=== PATIENT | male | born 1965 | race Hispanic/Latino ===

== ENCOUNTER 2017-07-05 21:33 | Inpatient (IN) | payer MEDICAID, OTHER ==
[~2017-07-05] VITALS: Ht 167.6 cm; Wt 101.6 kg
[2017-07-05 21:53] LABS: BASOPHILS % (AUTO) 0.5 % (0.0-5.0); EOSINOPHILS % (AUTO) 2.2 % (0.0-8.0); HEMATOCRIT 40.3 % (42-54); LYMPHOCYTES % (AUTO) 28.5 % (21.0-51.0); MEAN CORPUSCULAR HEMOGLOBIN 32.1 pg (27.0-33.0); MEAN CORPUSCULAR HGB CONC 34.4 g/dL (32.0-36.0); MEAN CORPUSCULAR VOLUME 93.3 fL (79-99); MONOCYTES % (AUTO) 6.5 % (3.0-13.0); NEUTROPHILS % (AUTO) 62.3 % (40.0-77.0); NUCLEATED RED BLOOD CELLS 0.1 % (0.0-0.19); PLATELET COUNT (AUTO) 236 K/uL (130-400); RED BLOOD CELL COUNT(AUTO) 4.32 MIL/uL (4.50-6.20); RED CELL DISTRIBUTION WIDTH 13.9 % (11.0-15.5); WHITE BLOOD COUNT (AUTO) 12.8 K/uL (4.8-10.8)
[2017-07-05 22:03] LABS: CARBON DIOXIDE 26 mmol/L (21-32); CHLORIDE 104 mmol/L (101-111); CREATININE 0.8 mg/dL (0.5-1.5); GLOMERULAR FILTR. RATE CALC 108 mL/min (>60); GLUCOSE,RANDOM 144 mg/dL (70-105); POTASSIUM 3.5 mmol/L (3.5-5.1); SODIUM SERUM 140 mmol/L (136-145); UREA NITROGEN, BLOOD 9 mg/dL (7-18)
[2017-07-05 22:04] LABS: INR 0.93 (0.85-1.15); PARTIAL THROMBOPLASTIN TIME 26.5 SEC (26.3-35.5); PROTHROMBIN TIME 9.8 SEC (9.6-11.6)
[2017-07-05] MEDS ORDERED: ONDANSETRON HCL 4 MG/2 ML VIAL ONE (22:06)
[2017-07-05] MEDS ORDERED: NITROGLYCERIN 50 MG/D5% WATER 1 BOT ONE (22:06)
[2017-07-05] MEDS ORDERED: MORPHINE SULFATE 2 MG/ML 1ML SYG ONE (22:07)
[2017-07-05 22:18] LABS: ALANINE AMINOTRANSFERASE 45 U/L (12-78); ALBUMIN 3.4 g/dL (3.5-5.0); ASPARTATE AMINOTRANSFERASE 22 U/L (10-37); BILIRUBIN,TOTAL 0.2 mg/dL (0.2-1.0); CREATINE KINASE MB < 0.5 ng/mL (0.5-3.6); CREATINE KINASE, TOTAL 82 U/L (21-232); MYOGLOBIN 20 ng/mL (10-92); TOTAL PROTEIN, SERUM 6.8 g/dL (6.0-8.3)
[2017-07-05] MEDS ORDERED: ACETAMINOPHEN EXTRA STRENGTH 500 MG TABLET ONE (22:49)
[2017-07-05] MEDS ORDERED: METOPROLOL TARTRATE 1 MG/ML 5ML VIAL IV ONE (23:27)
[2017-07-06] VITALS (27 sets, daily range): BP systolic 73–127; BP diastolic 27–80
[2017-07-06] MEDS ORDERED: METOPROLOL TARTRATE 1 MG/ML 5ML VIAL IV ONE (00:33)
[2017-07-06] MEDS ORDERED: NITROGLYCERIN 50 MG/D5% WATER 250 BOT IV PRN (01:15)
[2017-07-06 01:50] LABS: CREATINE KINASE MB < 0.5 ng/mL (0.5-3.6); CREATINE KINASE, TOTAL 79 U/L (21-232); MYOGLOBIN 22 ng/mL (10-92)
[2017-07-06 06:41] LABS: INR 0.96 (0.85-1.15); PARTIAL THROMBOPLASTIN TIME 26.4 SEC (26.3-35.5); PROTHROMBIN TIME 10.1 SEC (9.6-11.6)
[2017-07-06 07:02] LABS: CHOLESTEROL 107 mg/dL (<200); CREATINE KINASE MB < 0.5 ng/mL (0.5-3.6); CREATINE KINASE, TOTAL 65 U/L (21-232); HDL CHOLESTEROL 36 mg/dL (29-71); LDL DIRECT 68 mg/dL (0-99); TRIGLYCERIDES 102 mg/dL (30-200)
[2017-07-06 07:54] LABS: CREATININE 0.8 mg/dL (0.5-1.5); POTASSIUM 3.8 mmol/L (3.5-5.1)
[2017-07-06 07:57] LABS: BASOPHILS % (AUTO) 0.9 % (0.0-5.0); EOSINOPHILS % (AUTO) 2.1 % (0.0-8.0); HEMATOCRIT 37.9 % (42-54); LYMPHOCYTES % (AUTO) 32.9 % (21.0-51.0); MEAN CORPUSCULAR HEMOGLOBIN 31.7 pg (27.0-33.0); MEAN CORPUSCULAR HGB CONC 33.7 g/dL (32.0-36.0); MEAN CORPUSCULAR VOLUME 94.3 fL (79-99); MONOCYTES % (AUTO) 6.5 % (3.0-13.0); NEUTROPHILS % (AUTO) 57.6 % (40.0-77.0); PLATELET COUNT (AUTO) 213 K/uL (130-400); RED BLOOD CELL COUNT(AUTO) 4.02 MIL/uL (4.50-6.20); RED CELL DISTRIBUTION WIDTH 14.4 % (11.0-15.5); WHITE BLOOD COUNT (AUTO) 10.7 K/uL (4.8-10.8)
[2017-07-06 08:00] LABS: BILIRUBIN,TOTAL 0.4 mg/dL (0.2-1.0); TOTAL PROTEIN, SERUM 6.4 g/dL (6.0-8.3)
[2017-07-06] MEDS ORDERED: ENOXAPARIN SODIUM 100 MG/1 ML SQ ONE (08:48)
[2017-07-06] MEDS ORDERED: FUROSEMIDE 40 MG TABLET ONE (08:49)
[2017-07-06] MEDS ORDERED: LOSARTAN 50 MG TABLET ONE (08:49)
[2017-07-06] MEDS ORDERED: ASPIRIN 81MG TAB.CHEW ONE (08:49)
[2017-07-06] MEDS ORDERED: METOPROLOL TARTRATE 25 MG TAB ONE (08:49)
[2017-07-06] MEDS: ISOSORBIDE MONO 30MG TAB SR PO SCH (09:00)
[2017-07-06] MEDS ORDERED: ENOXAPARIN SODIUM 1 MG/KG SQ SCH (09:00)
[2017-07-06] MEDS: ATORVASTATIN CALCIUM 10 MG TABLET PO SCH (09:00)
[2017-07-06] MEDS: METOPROLOL TARTRATE 25 MG TAB PO SCH ×2 (09:00→20:26)
[2017-07-06] MEDS: LOSARTAN 50 MG TABLET PO SCH (09:00)
[2017-07-06] MEDS: ASPIRIN 81MG TAB.CHEW PO SCH (09:00)
[2017-07-06] MEDS: FUROSEMIDE 40 MG TABLET PO SCH (09:00)
[2017-07-06] MEDS ORDERED: ATORVASTATIN CALCIUM 40 MG TABLET PO SCH (09:15)
[2017-07-06] MEDS ORDERED: METO-409 PO (11:57)
[2017-07-06] MEDS ORDERED: SITA50TA PO (11:57)
[2017-07-06] MEDS ORDERED: FISH1CAP63 PO (11:57)
[2017-07-06] MEDS ORDERED: METF10004 PO (11:57)
[2017-07-06] MEDS ORDERED: ATOR40TA71 PO (11:57)
[2017-07-06] MEDS ORDERED: NITR0.4T SL (11:57)
[2017-07-06] MEDS ORDERED: LOSA50TA37 PO (11:57)
[2017-07-06] MEDS ORDERED: CHOL200012 PO (11:57)
[2017-07-06] MEDS ORDERED: ASPI-1026 PO (11:57)
[2017-07-06 13:12] LABS: CREATINE KINASE MB < 0.5 ng/mL (0.5-3.6); CREATINE KINASE, TOTAL 69 U/L (21-232); MYOGLOBIN 30 ng/mL (10-92); TROPONIN I < 0.04 ng/mL (0.00-0.06)
[2017-07-06] MEDS: ENOXAPARIN SODIUM 120 MG/0.8ML SQ SCH (20:44)
[2017-07-07] VITALS (11 sets, daily range): BP systolic 91–124; BP diastolic 44–76
[2017-07-07 03:10] LABS: CREATINE KINASE MB < 0.5 ng/mL (0.5-3.6); CREATINE KINASE, TOTAL 67 U/L (21-232); MYOGLOBIN 24 ng/mL (10-92); TROPONIN I < 0.04 ng/mL (0.00-0.06)
[2017-07-07] MEDS: ASPIRIN 81MG TAB.CHEW PO SCH (08:21)
[2017-07-07] MEDS: ISOSORBIDE MONO 30MG TAB SR PO SCH (08:21)
[2017-07-07] MEDS: METOPROLOL TARTRATE 25 MG TAB PO SCH (08:21)
[2017-07-07] MEDS: LOSARTAN 50 MG TABLET PO SCH (08:22)
[2017-07-07] MEDS: FUROSEMIDE 40 MG TABLET PO SCH (08:23)
[2017-07-07] MEDS: ATORVASTATIN CALCIUM 10 MG TABLET PO SCH (08:23)
[2017-07-07] MEDS: ENOXAPARIN SODIUM 120 MG/0.8ML SQ SCH (08:24)
== END 2017-07-07 12:00 | disposition home or self-care (01) | DRG 198 ==
LOC: EDH 21:34 → EDHIP 21:35 → 2BH 07-06 11:33
PROVIDERS: ADMIT Family Medicine; ATTEND Family Medicine
DX: I25.110 Atherosclerotic heart disease of native coronary artery with unstable angina pectoris (principal); E11.9 Type 2 diabetes mellitus without complications; E78.5 Hyperlipidemia, unspecified; I10 Essential (primary) hypertension; I25.5 Ischemic cardiomyopathy; M19.90 Unspecified osteoarthritis, unspecified site; F17.210 Nicotine dependence, cigarettes, uncomplicated; Z95.1 Presence of aortocoronary bypass graft; Z88.8 Allergy status to other drugs, medicaments and biological substances; Z82.49 Family history of ischemic heart disease and other diseases of the circulatory system; Z83.3 Family history of diabetes mellitus
CPT/HCPCS: 36415; 71045; 80053; 80061; 82550; 82553; 82948; 83874; 83880; 84484; 85025; 85610; 85730; 93005; 93306; 99291; J1650; J2405; J3490